=== PATIENT | male | born 1995 | race African-American/Black ===

== ENCOUNTER 2024-02-24 14:12 | Emergency (ER) | payer OTHER, SELFPAY ==
--- NOTE | ~2024-02-24 | XR_ITS ---
EXAMINATION: XR KNEE, LEFT CLINICAL INFORMATION: Pain and swelling COMPARISON: None available. TECHNIQUE: Four views of the left knee. FINDINGS: There appears to be edema/swelling of subcutaneous tissue in the prepatellar and infrapatellar region. Otherwise, soft tissues are unremarkable. Bones and joints are normal. No arthritic deformity, fracture or subluxation. No knee joint effusion. XR/XR knee LT 4V IMPRESSION: * There appears to be soft tissue swelling in the prepatellar/infrapatellar region. * Otherwise, unremarkable left knee.
[2024-02-24 14:43] VITALS: BP 139/97; PULSE 65; RESP 16; TEMP 36.3; O2SAT 97; BMI 29.8
--- NOTE | 2024-02-24 14:43 | ED.GENADULT ---
HPI - General Adult General Chief complaint: General Medical Stated complaint: Multiple complaints - back pain, ankle/knee pain Time Seen by Provider: 02/24/24 17:08 Source: patient Mode of arrival: ambulatory Limitations: no limitations History of Present Illness ED Provider: RUTH RAMEY PA-C HPI narrative: 28-year-old male with pmhx significant for polysubstance use on methadone presents to the ED today for evaluation of multiple concerns. He tells me that he is noticed swelling to his left knee along with bilateral ankles x3 days. Denies injury or trauma to these areas. Denies history of cardiac disease. States this has never happened before. Additionally reports scattered bumps to different areas of his body; one to right lower extremity, one to his lower right abdomen, and one to his upper left back. Denies pain. Denies known tick or insect bites. Denies new soaps/detergents/lotions. Denies new medications. Denies recent antibiotic use. Patient admits that he was recently homeless however was able to enter a senior care earlier today. Admits to IVDU with heroin and cocaine. Last used 3 days ago. Denies etoh consumption. Denies SI/HI. Denies fever, chills, rashes, headache, dizziness, vision changes, neck or back pain, N/V. Related Data Previous Rx's ?Medication ?Instructions ?Recorded doxycycline monohydrate 100 mg 100 mg PO BID 7 days #14 tabs 02/24/24 tablet prednisone 20 mg tablet 40 mg (2 x 20 mg) PO DAILY 5 days 02/24/24 #10 tabs Allergies Allergy/AdvReac Type Severity Reaction Status Date / Time No Known Allergies Allergy Verified 02/24/24 14:49 Review of Systems Review of Systems: Constitutional: No fever, chills, fatigue, night sweats, weight changes ENT/Mouth: No ear pain, hearing loss, nasal congestion, sinus pain, rhinorrhea, sore throat Eyes: No eye pain, swelling, redness, vision changes, discharge Cardio: No chest pain, palpitations, HARP, orthopnea, peripheral edema Pulm: No SOB, cough, sputum, wheezing, dyspnea, hemoptysis GI: No nausea, vomiting, hematemesis, abdominal pain, diarrhea, constipation, hematochezia, melena : No irregular bleeding, dysuria, frequency, urgency, hesitancy, hematuria, flank pain, urinary flow changes, urinary incontinence or retention MSK: No back pain, neck pain, joint pain, myalgias, +knee and ankle swelling Skin: No lesions, rashes, +skin lesions Neuro: No weakness, numbness, paresthesias, LOC, dizziness, headache Psych: No anxiety/panic, depression, SI/HI, AH/VH All other systems reviewed and are negative. [facility] Past Medical History Attestation statement: The following information was validated with the patient. Source: old records reviewed and nursing notes reviewed Social History Social History Advance Directives: No Advance Directives Information Provided: Yes Physical Exam ED Vital Signs: Vital Signs - 24 hr 02/24/24 14:43 02/24/24 18:52 Temperature 97.3 F 98.0 F Pulse Rate 65 68 Respiratory Rate 16 18 Blood Pressure 139/97 H 141/83 H Pulse Oximetry 97 98 Oxygen Delivery Method Room Air Room Air BMI result Body Mass Index 29.8 Patient hypertensive, vitals otherwise WNL Const General: cooperative, comfortable and no acute distress Orientation/consciousness: patient oriented x3 Limitations: no limitations HENMT Head: Yes normal to inspection, Yes No palpable skull fracture present, Yes normocephalic and Yes atraumatic Eyes General: appearance normal, both eyes and all related structures Pupils: Equal, round and reactive pupils present Neck Neck: Yes normal visual inspection, Yes full ROM and Yes no lymphadenopathy Resp Effort & Inspection: normal respiratory effort and able to speak in complete sentences Auscultation: clear to auscultation bilaterally Cardio Rate: regular rate Rhythm: regular rhythm GI Inspection: Yes normal to inspection Palpation (GI): Soft to palpation and nontender Neuro General: patient oriented x3 Cranial nerves: Yes Equal, round and reactive pupils present Extrem Other: + left knee with noted swelling. No overlying skin changes or deformity. Slightly tender to palpation of anterior left knee without palpable deformity, warmth, crepitus, fluctuance. Full ROM intact to both knees and ankles. Noted pedal edema. No peripheral edema. No calf tenderness bilaterally. Ambulating with steady gait. 2+ PT/DP/popliteal pulses bilaterally. Sensation intact to light touch. Course Course Course Narrative: This is a Rapid Medical Exam performed in triage by Alyssa Lombardi PA-C. Full HPI, ROS and PE to be performed by primary ED provider. 28 year-old M w/ no sig PMHx presenting to the ED c/o L knee fluid build up, bilateral ankle swelling & scattered bruising to back with pruritis. Also feels like I have alopecia. Has been sleeping on uneven surfaces. States has been homeless, just got housing today. PE: L knee with swelling and ttp. + indurated nodule to right inner thigh. Ecchymosis/lesions to back Plan: Labs, tick-borne illness Reevaluation(s) Reevaluation #1: 1830 -- CBC without leukocytosis or left shift. Slightly anemic with H&H 10.9/32.5 without priors to compare to. Normal platelets. ESR slightly elevated at 28. Chemistry without acute electrolyte abnormality requiring intervention. CRP slightly elevated to 2.95. BNP WNL. Normal liver and renal function. X-ray left knee shows soft tissue swelling in the prepatellar/infrapatellar region. Eagle wrap provided. > Lyme and tick-borne pathology pending. Discussed with patient and will treat with 1 week of doxycycline for suspected tick-borne pathology. He will be called with any positive results. > patient given referrals to PCP and to dermatology. Patient has remained stable throughout ED visit today. Discussed worrisome signs and symptoms and when to return to the ED. All questions answered at this time. Patient is agreeable with disposition and stable for discharge. Medical Decision Making Medical Decision Making MDM Narrative: 28-year-old male with pmhx significant for polysubstance use on methadone presents to the ED today for evaluation of multiple concerns. Patient hypertensive, vitals otherwise wnl. Patient is nontoxic-appearing and in no acute distress. On exam, left knee with noted swelling. No overlying skin changes or deformity. Slightly tender to palpation of anterior left knee without palpable deformity, warmth, crepitus, fluctuance. Full ROM intact to both knees and ankles. Noted pedal edema. No peripheral edema. No calf tenderness bilaterally. Ambulating with steady gait. 2+ PT/DP/popliteal pulses bilaterally. Sensation intact to light touch. Differential diagnosis includes contusion, msk sprain/ strain, fracture, Lyme disease, tick-borne pathology, dermatitis. Unlikely septic joint, gout, pseudogout. Plan for labs, lyme testing, tick bourne testing, xray, re-evaluation. Differential Diagnosis Differential Diagnoses: The differential diagnosis associated with the presentation includes as above. Admission/Observation Not indicated. Lab Data MDM Lab Attestation statement: I reviewed the patient's lab results. as above. 02/24/24 16:52 02/24/24 16:52 Labs: Lab Results 02/24/24 Range/Units 16:52 WBC 6.9 (4.8-10.8) X10*3/uL RBC 3.72 L (4.60-5.80) X10*6/uL Hgb 10.9 L (14.0-18.0) g/dl Hct 32.5 L (42.0-52.0) % MCV 87.4 (80.0-98.0) fL MCH 29.3 (27.0-33.0) pg MCHC 33.5 (31.0-36.0) g/dl RDW 12.5 (11.0-16.0) % Plt Count 282 (160-400) X10*3/uL MPV 8.8 L (9.4-12.4) fL Immature Gran % (Auto) 0.4 (0.0-0.4) % Neut % (Auto) 45.1 (45-73) % Lymph % (Auto) 41.5 H (20-40) % Cassia % (Auto) 8.7 (2-11) % Eos % (Auto) 4.0 (0-4) % Baso % (Auto) 0.3 (0-2) % Lymph # (Auto) 2.9 (1.2-4.9) X10*3/uL Cassia # (Auto) 0.6 (0.1-1.2) X10*3/uL Eos # (Auto) 0.3 (0.0-0.4) X10*3/uL Baso # (Auto) 0.0 (0.0-0.2) X10*3/uL Abs Immat Gran (auto) 0.03 (0.00-0.03) X10*3/uL Absolute Neuts (auto) 3.1 (2.0-8.3) x10*3/uL Absolute Nucleated RBC 0.000 (0.0-0.012) X10*3/uL Nucleated RBC % (auto) 0.0 (0.0-0.2) /100WBC ESR 28 H (0-15) MM/HR PT 11.8 (11.1-13.3) SEC INR 1.0 (0.9-1.1) Sodium 141 (135-145) mmol/L Potassium 4.7 (3.3-5.1) mmol/L Chloride 101 (96-108) mmol/L Carbon Dioxide 33 H (22-29) mmol/L Anion Gap 12 (12-20) BUN 9 (9-16) mg/dL Creatinine 0.73 (0.5-1.4) mg/dL Estim Creat Clear Calc 155.1 Estimated GFR > 60 Random Glucose 81 (60-115) mg/dL Uric Acid 4.2 (3.4-7.0) mg/dL Calcium 10.3 H (8.4-10.2) mg/dL Total Bilirubin 0.1 (0.0-1.0) mg/dL Direct Bilirubin < 0.2 (0.0-0.5) mg/dL AST 29 (5-37) U/L ALT 20 (0-40) U/L Alkaline Phosphatase 52 (39-117) U/L C-Reactive Protein 2.95 H (< or = 0.50) mg/dL B-Natriuretic Peptide 85 (<100) pg/mL Total Protein 7.6 (6.5-8.0) g/dL Albumin 3.9 (3.5-5.0) g/dL Independent Interpretation I performed an independent interpretation of an: Plain X-Ray Interpretation: XR left knee with effusion, agree with radiologist's interpreation. Radiology Impression Discussion of test interpretation with radiology: I have reviewed the radiologist's reading. Radiologist Impression: EXAMINATION: XR KNEE, LEFT CLINICAL INFORMATION: Pain and swelling COMPARISON: None available. TECHNIQUE: Four views of the left knee. FINDINGS: There appears to be edema/swelling of subcutaneous tissue in the prepatellar and infrapatellar region. Otherwise, soft tissues are unremarkable. Bones and joints are normal. No arthritic deformity, fracture or subluxation. No knee joint effusion. XR/XR knee LT 4V IMPRESSION: * There appears to be soft tissue swelling in the prepatellar/infrapatellar region. * Otherwise, unremarkable left knee. Social Determinants Patient?s care significantly limited by Social Determinants of Health including: Other Social Determinant of Health Critical Care Time Critical Care Time Critical Care Time: No Discharge Plan Discharge Clinical Impression: Sprain of left knee Patient Disposition: Home, Self-Care Instructions: Lyme Disease (ED), Knee Sprain (ED), Tick Bite (ED) Additional Instructions: Your lab workup today is reassuring. Your blood was sent to the lab to check for tick borne pathology including lyme disease. You will be treated for suspected lyme disease. A 1 week course of doxycycline has been sent to your pharmacy for treatment. You will be called within the next few days with any positive results from this testing. Prednisone as a steroid that has been sent to your pharmacy. Take this for the next 5 days to help with swelling/inflammation. You have been provided with a referral to a primary care physician. You may call them to establish care. They will not call you. You have also been provided with a referral to a pacs administrator. Call them to establish care. They will not call you. Return with new or worsening symptoms In the case of an emergency call 911. Prescriptions: New doxycycline monohydrate 100 mg tablet 100 mg PO BID 7 Days Qty: 14 0RF prednisone 20 mg tablet 40 mg PO DAILY 5 Days Qty: 10 0RF Referrals: [facility] [Provider Group] [facility] [place] [facility]Provider Group] [facility] [place] [facility]] Karol Marie PA [Physician Metal Furniture Polisher] - Stand Alone Forms: Work/School Release Interventions: ED Discharge Assessment Last Done: 02/24/24 18:52 Discharge Date/Time: 02/24/24 18:53 Print Language: Malian
[2024-02-24 17:09] LABS: MANUAL DIFF FLAG NO
[2024-02-24 17:10] LABS: Basophils Percent Auto 0.3 % (0-2); Eosinophils Absolute Auto 0.3 X10*3/uL (0.0-0.4); Hematocrit 32.5 % (42.0-52.0); Hemoglobin 10.9 g/dl (14.0-18.0); Imm Gran Abs Auto 0.03 X10*3/uL (0.00-0.03); Imm Gran Pct Auto 0.4 % (0.0-0.4); Lymphocytes Absolute Auto 2.9 X10*3/uL (1.2-4.9); Lymphocytes Percent Auto 41.5 % (20-40); Mean Corpuscular HGB Conc 33.5 g/dl (31.0-36.0); Mean Corpuscular Hemoglobin 29.3 pg (27.0-33.0); Mean Corpuscular Volume 87.4 fL (80.0-98.0); Mean Platelet Volume 8.8 fL (9.4-12.4); Monocytes Absolute Auto 0.6 X10*3/uL (0.1-1.2); Monocytes Percent Auto 8.7 % (2-11); Neutrophils Absolute Auto 3.1 x10*3/uL (2.0-8.3); Neutrophils Percent Auto 45.1 % (45-73); Platelet Count 282 X10*3/uL (160-400); Red Blood Count 3.72 X10*6/uL (4.60-5.80); Red Cell Distribution Width 12.5 % (11.0-16.0); White Blood Count 6.9 X10*3/uL (4.8-10.8)
[2024-02-24 17:16] LABS: Prothrombin Time 11.8 SEC (11.1-13.3)
[2024-02-24 17:27] LABS: Alanine Aminotransferase 20 U/L (0-40); Albumin Level 3.9 g/dL (3.5-5.0); Alkaline Phosphatase 52 U/L (39-117); Anion Gap 12 (12-20); Aspartate Amino Transferase 29 U/L (5-37); Bilirubin Direct < 0.2 mg/dL (0.0-0.5); Bilirubin Total 0.1 mg/dL (0.0-1.0); Blood Urea Nitrogen 9 mg/dL (9-16); C Reactive Protein 2.95 mg/dL (< or = 0.50); Calcium 10.3 mg/dL (8.4-10.2); Carbon Dioxide 33 mmol/L (22-29); Chloride 101 mmol/L (96-108); Creatinine Clr Calc Pharmacy 155.1; Estimated Glomerular Filt Rate > 60; Glucose Random 81 mg/dL (60-115); Potassium 4.7 mmol/L (3.3-5.1); Sodium 141 mmol/L (135-145); Total Protein 7.6 g/dL (6.5-8.0)
[2024-02-24 17:49] LABS: B Type Natriuretic Peptide 85 pg/mL (<100)
[2024-02-24 17:50] LABS: Erythrocyte Sedimentation Rate 28 MM/HR (0-15)
[2024-02-24 18:37] LABS: Uric Acid 4.2 mg/dL (3.4-7.0)
[2024-02-24 18:52] VITALS: BP 141/83; PULSE 68; RESP 18; TEMP 36.7; O2SAT 98
--- NOTE | 2024-02-24 18:52 | PC.NURSE ---
lt knee yang wrapped
[2024-02-26 03:13] LABS: A. Phagocytphilium DNA,RT-PCR NOT DETECTED (NOT DETECTED); Babesia Microti DNA, RT-PCR NOT DETECTED (NOT DETECTED); Borrelia Miyamotoi,DNA RT-PCR NOT DETECTED (NOT DETECTED); E.Chaffeensis DNA RT-PCR NOT DETECTED (NOT DETECTED); Lyme(Borrelia ssp)DNA RT-PCR NOT DETECTED (NOT DETECTED)
[2024-02-28 18:37] LABS: Lyme Abs Screen <0.90 index
== END 2024-02-24 18:53 | disposition home or self-care (01) ==
PROVIDERS: Physician Assistant; Physician Assistant Medical; Emergency Provider Emergency Medicine
DX: S83.92XA Sprain of unspecified site of left knee, initial encounter (principal); X58.XXXA Exposure to other specified factors, initial encounter; R60.0 Localized edema; F11.20 Opioid dependence, uncomplicated; Y93.9 Activity, unspecified; Y92.9 Unspecified place or not applicable; Y99.9 Unspecified external cause status
CPT/HCPCS: 36415; 73564; 80048; 80076; 83880; 84550; 85025; 85610; 85652; 86140; 86617; 86618; 87468; 87469; 87478; 87484; 87798; 99282; 99283

== ENCOUNTER 2025-07-24 17:21 | Inpatient (IN) | payer OTHER, SELFPAY ==
[2025-07-24 17:50] VITALS: BP 136/74; PULSE 80; RESP 18; TEMP 37; O2SAT 97
[2025-07-24 17:59] VITALS: BMI 32.4
--- NOTE | 2025-07-24 18:46 | HE.PHANOTE ---
Re Methadone Pt receives 100mg from [facility], last dose on 07/18/25, but received 40mg at [facility] ED on 07/24/25.
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
[2025-07-24] MEDS: buPROPion HCl XL 150 MG TAB.ER.24H PO (21:29)
[2025-07-24 21:30] VITALS: BP 114/82
[2025-07-24] MEDS: Clotrimazole 1 % Cream 15 GM TUBE 1 APPL TOPICAL (21:35)
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
[2025-07-24 22:57] VITALS: PULSE 102; RESP 18; TEMP 2.7; TEMP 36.9; O2SAT 96
[2025-07-25 07:29] VITALS: BP 142/89; PULSE 71; RESP 20; TEMP 36.4; O2SAT 98
[2025-07-25] MEDS: methADONE HCl 20 MG/2 ML ORAL.CONC 40 MG PO (08:20)
[2025-07-25] MEDS: buPROPion HCl XL 150 MG TAB.ER.24H PO (08:43)
[2025-07-25] MEDS: Nicotine 21 MG PATCH.TD24 TRANSDERMA (08:46)
[2025-07-25] MEDS: Nicotine Polacrilex Lozenge 4 MG LOZENGE BUCCAL ×4 (08:46→19:07)
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
--- NOTE | 2025-07-25 09:22 | HO.PSYCHPN ---
Subjective Subjective Date of Service: 07/25/25 Reason For Visit: unspecified depressive disorder Subjective Notes: Conditional Voluntary Interim History: Chart reviewed, case discussed in team Pt met w/ Earline Barbosa from addiction medicine earlier today. Methadone was titrated from 40 mg to 65 mg this am. Pt reported feeling more comfortable when t/w met w/ him after he received the methadone. Pt received Wellbutrin XL 150 mg this am. He reports that it had been rx'd prior to admission but he hadn't tried it yet. Denies any SE from first dose Pt reports feeling a little better, safe and more relaxed since being on the unit. Slept okay. Endorses decreased SI and denies current plan to harm himself. He denies AH/VH. Endorses depressed and anxious mood, negative self thoughts. He reports that life has been very stressful living on the streets. He reports that he currently has no support b/c of the drug use (crack, cocaine, heroin and meth). His mom would be a support if he were sober. He is worried about being discharged too quickly from the hospital, states that he needs long-term treatment. He has previously attended [facility], [facility] and 4-5 other tx programs. He reports that he was kicked out of a TSS program for smoking a cigarette on the first day. Medication Compliance: Yes Side effects from medications: No Mental Status Exam Mental Status Exam Narrative: Appearance: Wearing hospital nannette, headphones. Disheveled Attitude:Cooperative Speech: Fluent and wnl in regard to volume, tone, prosody Motor activity: Calm and without any tics, tremors or dyskinesias Mood: as noted above Affect: appropriate, reactive Thought process: goal directed and without evidence of formal thought disorder Thought content: endorses SI without plan to harm himself. Denies violent ideation Perception: Denies AH/VH and does not appear to respond to internal stimuli Alert/oriented in all spheres Cognition grossly intact Insight: fair Judgment: fair Diagnostics Vital Signs (24Hr): Vital Signs - 24 hr 07/24/25 17:50 07/24/25 21:30 07/24/25 22:57 Temperature 98.6 F 36.9 F L Pulse Rate 80 102 H Respiratory Rate 18 18 Blood Pressure 136/74 114/82 Pulse Oximetry 97 96 Oxygen Delivery Method Room Air Room Air 07/25/25 07:29 Temperature 97.6 F Pulse Rate 71 Respiratory Rate 20 Blood Pressure 142/89 H Pulse Oximetry 98 Oxygen Delivery Method Room Air BMI result Body Mass Index 32.4 Medications Medications Current Medications Acetaminophen (Acetaminophen 325 Mg Tablet) 650 mg PO Q6H PRN PRN Reason: Headache/Pain, Scale 1-10 Al Hydroxide/Mg Hydroxide (Magnesium Hydrox/Alum Hydrox 30 Ml Oral.Susp) 30 ml PO Q6H PRN PRN Reason: Heartburn/Nausea Albuterol Sulfate (Albuterol Sulfate 90 Mcg 8 Gm Inhaler) 2 puff INHALE RQ4H PRN PRN Reason: SOB/Wheezing Amoxicillin/Clavulanate Potassium (Amoxicillin/Potassium Clav 875 Mg Tablet) 875 mg PO BID [facility] Stop: 07/31/25 19:00 Last Admin: 07/25/25 08:43 Dose: 875 mg Baclofen (Baclofen 10 Mg Tablet) 10 mg PO TID PRN PRN Reason: muscle pain/ Opiate W/D Last Admin: 07/24/25 21:29 Dose: 10 mg Bupropion HCl (Bupropion Hcl Xl 150 Mg Tab.Er.24h) 150 mg PO DAILY [facility] Last Admin: 07/25/25 08:43 Dose: 150 mg Clonidine HCl (Clonidine Hcl 0.1 Mg Tablet) 0.1 mg PO TID PRN; Protocol PRN Reason: Opiate W/D Last Admin: 07/24/25 21:30 Dose: 0.1 mg Clotrimazole (Clotrimazole 1 % Cream 15 Gm Tube) 1 appl TOPICAL BID [facility]; Protocol Last Admin: 07/24/25 21:35 Dose: 1 appl Hydroxyzine HCl (Hydroxyzine Hcl 50 Mg Tablet) 50 mg PO Q6H PRN PRN Reason: mild anxiety Ketoconazole (Ketoconazole 2 % Shampoo 120 Ml Btl) 1 appl TOPICAL Q3D [facility]; Protocol Lidocaine HCl (Lidocaine Hcl Viscous 2 % 15 Ml Solution) 5 ml PO DAILY PRN PRN Reason: mild pain Magnesium Hydroxide (Milk Of Magnesia 30 Ml Oral.Susp) 30 ml PO DAILY PRN PRN Reason: Constipation Methadone HCl (Methadone Hcl 20 Mg/2 Ml Oral.Conc) 40 mg PO DAILY [facility] Last Admin: 07/25/25 08:20 Dose: 40 mg Nicotine (Nicotine 21 Mg Patch.Td24) 21 mg TRANSDERMA DAILY PRN PRN Reason: nicotine craving Last Admin: 07/25/25 08:46 Dose: 21 mg Nicotine Polacrilex (Nicotine Polacrilex Lozenge 4 Mg Lozenge) 4 mg BUCCAL Q2H PRN PRN Reason: Nicotine Cravings Last Admin: 07/25/25 08:46 Dose: 4 mg Olanzapine (Olanzapine 5 Mg Tablet) 5 mg PO BID PRN PRN Reason: agitation Trazodone HCl (Trazodone Hcl 50 Mg Tablet) 50 mg PO BEDTIME MRX1 PRN PRN Reason: Insomnia Allergies Allergies Allergy/AdvReac Type Severity Reaction Status Date / Time No Known Allergies Allergy Verified 02/24/24 14:49 Assessment & Plan Assessment & Plan (1) Depression: Status: Acute Code(s): F32.A - Depression, unspecified (2) PTSD (post-traumatic stress disorder): Status: Acute Code(s): F43.10 - Post-traumatic stress disorder, unspecified (3) Polysubstance use disorder: Status: Acute Code(s): F19.90 - Other psychoactive substance use, unspecified, uncomplicated (4) Tooth infection: Status: Acute Code(s): K04.7 - Periapical abscess without sinus Plan HPI: patient is a 29 y.o single Latvian speaking male with hx of asthma, PTSD, depression, anxiety, and polysubstance use disorders who self presented to ED reporting SI with plan to OD. SI related to his continued drug use, homelessness, and overall displeasure with his life circumstances. Report that he has been using all day everyday, they are not even working. I cannot even kill myself . Formulation/clinical reasoning: Limited community support after [facility] from [facility]. No OP providers/therapist. Only started MTD with current dose 40mg, increased in hopeless, helpless, not able to get help in community. hx of PTSD, foster care during childhood, MDD. Given above information, patient would benefit in restrictive environment, medication management. Patient is a appropriate for snf substance tx program for after care. Hospital course: 07/24/25: On [facility] protocol for opiate W/D symptoms Baclofen 10mg TID PRN and clonidine 0.1 TID PRN as comfort meds for W/D symptoms Restart on Wellbutrin XL 150mg daily for depression On ABT for tooth infection x7 days. MTD 40mg daily. Consult sent Addiction team regarding MTD/ SA use. Plan Patient on 15 minute checks for safety. Admitted to [facility]. CV. Work with treatment team to do collateral for CSS/CCS if possible for aftercare. Refer to patient to grounds restoration specialist: yes for MTD management Contact the hospitalist regarding hospitalist consultation on admission: pending. 07/25: Pt started Wellbutrin XL 150 mg this am, denies SE so far. Met w/ addiction medicine [facility] who titrated his methadone to 65 mg. Met w/ hospitalist, who started him on clotrimazole for tinea cruris. Input appreciated. Continue current tx plan for now Patient educated on: diagnosis and medication risk/benefits Informed Consent: understands Reason for continued inpatient stay Substantial Risk for: harm to self and med/psych decompensation Time Spent With Patient Time: Total time managing care of this patient today __30__ minutes.
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
[2025-07-25] MEDS: methADONE HCl 20 MG/2 ML ORAL.CONC 25 MG PO (10:17)
[2025-07-25] MEDS: Clotrimazole 1 % Cream 15 GM TUBE 1 APPL TOPICAL ×2 (12:04→20:49)
[2025-07-25 16:20] VITALS: PULSE 80
[2025-07-25] MEDS: Ketoconazole 2 % Shampoo 120 ML BTL 1 APPL TOPICAL (17:02)
[2025-07-25 20:00] VITALS: BP 141/90; PULSE 86; RESP 16; TEMP 36.6; O2SAT 96
[2025-07-26] MEDS: methADONE HCl 20 MG/2 ML ORAL.CONC 75 MG PO (08:20)
[2025-07-26 08:35] VITALS: BP 136/81; PULSE 73; RESP 16; TEMP 36.3; O2SAT 98
[2025-07-26 08:37] VITALS: PULSE 73
[2025-07-26] MEDS: buPROPion HCl XL 150 MG TAB.ER.24H PO (08:40)
[2025-07-26] MEDS: Clotrimazole 1 % Cream 15 GM TUBE 1 APPL TOPICAL ×2 (08:41→21:05)
--- NOTE | 2025-07-26 09:15 | HO.PSYCHPN ---
Subjective Subjective Date of Service: 07/26/25 Reason For Visit: unspecified depressive disorder Subjective Notes: Conditional Voluntary Interim History: singing dancing in [place], appears to respond to internal stimuli slept x 8 hrs referred to [facility] [place]- they don't take his insurance referred to [facility]- waiting to hear back Pt reports that he's feeling blah . Denies having SI at this moment . Reports good sleep/appetite. When asked about AH, he states I wish because at least I'd have someone to talk to . When asked if he's been talking to anyone on the unit he replied nah . Pt endorses neuropathic leg pain. States he took gabapentin in the past. He didn't f/u with his provider and therefore ran out of the med. Received 75 mg methadone this am. Denies w/d sx Denies med SE. Mental Status Exam Mental Status Exam Narrative: Appearance: Casually dressed. Good eye contact. Odd mannerisms at times Attitude:Cooperative Speech: Fluent and wnl in regard to volume, tone, prosody Motor activity: Calm and without any tics, tremors or dyskinesias. Steady gait Mood: as noted above Affect: appropriate, reactive Thought process: Vague in describing current psychiatric sx but generally goal directed Thought content: Denies current SI. Does not endorse violent ideation Perception: Denies AH/VH and does not appear to respond to internal stimuli Insight: fair Judgment: fair Diagnostics Vital Signs (24Hr): Vital Signs - 24 hr 07/25/25 20:00 07/26/25 08:35 Temperature 97.8 F 97.3 F Pulse Rate 86 73 Respiratory Rate 16 16 Blood Pressure 141/90 H 136/81 Pulse Oximetry 96 98 Oxygen Delivery Method Room Air Room Air BMI result Body Mass Index 32.4 Medications Medications Current Medications Acetaminophen (Acetaminophen 325 Mg Tablet) 650 mg PO Q6H PRN PRN Reason: Headache/Pain, Scale 1-10 Al Hydroxide/Mg Hydroxide (Magnesium Hydrox/Alum Hydrox 30 Ml Oral.Susp) 30 ml PO Q6H PRN PRN Reason: Heartburn/Nausea Albuterol Sulfate (Albuterol Sulfate 90 Mcg 8 Gm Inhaler) 2 puff INHALE RQ4H PRN PRN Reason: SOB/Wheezing Amoxicillin/Clavulanate Potassium (Amoxicillin/Potassium Clav 875 Mg Tablet) 875 mg PO BID [facility] Stop: 07/31/25 19:00 Last Admin: 07/26/25 08:40 Dose: 875 mg Baclofen (Baclofen 10 Mg Tablet) 10 mg PO TID PRN PRN Reason: muscle pain/ Opiate W/D Last Admin: 07/24/25 21:29 Dose: 10 mg Bupropion HCl (Bupropion Hcl Xl 150 Mg Tab.Er.24h) 150 mg PO DAILY [facility] Last Admin: 07/26/25 08:40 Dose: 150 mg Clonidine HCl (Clonidine Hcl 0.1 Mg Tablet) 0.1 mg PO TID PRN; Protocol PRN Reason: Opiate W/D Last Admin: 07/24/25 21:30 Dose: 0.1 mg Clotrimazole (Clotrimazole 1 % Cream 15 Gm Tube) 1 appl TOPICAL BID [facility]; Protocol Stop: 08/22/25 20:59 Last Admin: 07/26/25 08:41 Dose: 1 appl Hydroxyzine HCl (Hydroxyzine Hcl 50 Mg Tablet) 50 mg PO Q6H PRN PRN Reason: mild anxiety Last Admin: 07/25/25 20:14 Dose: 50 mg Ketoconazole (Ketoconazole 2 % Shampoo 120 Ml Btl) 1 appl TOPICAL Q3D [facility]; Protocol Last Admin: 07/25/25 17:02 Dose: 1 appl Lidocaine HCl (Lidocaine Hcl Viscous 2 % 15 Ml Solution) 5 ml PO DAILY PRN PRN Reason: mild pain Magnesium Hydroxide (Milk Of Magnesia 30 Ml Oral.Susp) 30 ml PO DAILY PRN PRN Reason: Constipation Nicotine (Nicotine 21 Mg Patch.Td24) 21 mg TRANSDERMA DAILY PRN PRN Reason: nicotine craving Last Admin: 07/25/25 08:46 Dose: 21 mg Nicotine Polacrilex (Nicotine Polacrilex Lozenge 4 Mg Lozenge) 4 mg BUCCAL Q1H PRN PRN Reason: Nicotine Cravings Last Admin: 07/25/25 19:07 Dose: 4 mg Olanzapine (Olanzapine 5 Mg Tablet) 5 mg PO BID PRN PRN Reason: agitation Trazodone HCl (Trazodone Hcl 50 Mg Tablet) 50 mg PO BEDTIME MRX1 PRN PRN Reason: Insomnia Last Admin: 07/25/25 20:15 Dose: 50 mg Allergies Allergies Allergy/AdvReac Type Severity Reaction Status Date / Time No Known Allergies Allergy Verified 02/24/24 14:49 Assessment & Plan Assessment & Plan (1) Depression: Status: Acute Code(s): F32.A - Depression, unspecified (2) PTSD (post-traumatic stress disorder): Status: Acute Code(s): F43.10 - Post-traumatic stress disorder, unspecified (3) Polysubstance use disorder: Status: Acute Code(s): F19.90 - Other psychoactive substance use, unspecified, uncomplicated (4) Tooth infection: Status: Acute Code(s): K04.7 - Periapical abscess without sinus Plan HPI: patient is a 29 y.o single Tamaz[place] speaking male with hx of asthma, PTSD, depression, anxiety, and polysubstance use disorders who self presented to ED reporting SI with plan to OD. SI related to his continued drug use, homelessness, and overall displeasure with his life circumstances. Report that he has been using all day everyday, they are not even working. I cannot even kill myself . Formulation/clinical reasoning: Limited community support after released from alf. No OP providers/therapist. Only started MTD with current dose 40mg, increased in hopeless, helpless, not able to get help in community. hx of PTSD, foster care during childhood, MDD. Given above information, patient would benefit in restrictive environment, medication management. Patient is a appropriate for long term care pharmacist substance tx program for after care. Hospital course: 07/24/25: On COWs protocol for opiate W/D symptoms Baclofen 10mg TID PRN and clonidine 0.1 TID PRN as comfort meds for W/D symptoms Restart on Wellbutrin XL 150mg daily for depression On ABT for tooth infection x7 days. MTD 40mg daily. Consult sent Addiction team regarding MTD/ SA use. Plan Patient on 15 minute checks for safety. Admitted to M3. CV. Work with treatment team to do collateral for CSS/CCS if possible for aftercare. Refer to patient to solar energy specialist: yes for MTD management Contact the hospitalist regarding hospitalist consultation on admission: pending. 07/25: Pt started Wellbutrin XL 150 mg this am, denies SE so far. Met w/ addiction medicine TABLEAU REPORT DEVELOPER who titrated his methadone to 65 mg. Met w/ hospitalist, who started him on clotrimazole for tinea cruris. Input appreciated. Continue current tx plan for now 07/26: Methadone titrated to 75 mg by addiction medicine TABLEAU REPORT DEVELOPER. He is alert, denies current w/d sx. Tolerating current med regimen. Will start gabapentin 100 mg tid for neuropathic pain. Reviewed HOTEL CUSTODIAN. Patient educated on: medication risk/benefits Informed Consent: understands Reason for continued inpatient stay Substantial Risk for: med/psych decompensation Time Spent With Patient Time: Total time managing care of this patient today ____ minutes.
[2025-07-26 12:48] VITALS: PULSE 72
[2025-07-26] MEDS: Nicotine Polacrilex Lozenge 4 MG LOZENGE BUCCAL ×2 (13:20→17:23)
--- NOTE | 2025-07-26 14:01 | MHC.RECOVRN ---
TW met with pt to follow-up on opioid withdrawal symptoms. Pt is currently on 75mg of methadone daily and reports ongoing joint pain and muscle weakness attributed to withdrawal. Information relayed to Addiction Provider for review. ACS team to continue to follow and is available for ongoing support, resources, and education.
[2025-07-26 16:32] VITALS: PULSE 84
[2025-07-26 16:48] VITALS: BP 131/87; PULSE 81; RESP 16; TEMP 36.4; O2SAT 98
[2025-07-26 20:00] VITALS: BP 122/83; PULSE 81; RESP 16; TEMP 36.3; O2SAT 99
[2025-07-27] VITALS: PULSE 80
[2025-07-27 07:38] VITALS: BP 123/76; PULSE 75; RESP 20; TEMP 36.7; O2SAT 99
[2025-07-27 08:00] VITALS: PULSE 75
[2025-07-27] MEDS: buPROPion HCl XL 150 MG TAB.ER.24H PO (08:12)
[2025-07-27] MEDS: methADONE HCl 20 MG/2 ML ORAL.CONC 85 MG PO (08:57)
--- NOTE | 2025-07-27 11:11 | P.PNPSI_ITS ---
Subjective Subjective Date of Service: 07/27/25 Reason For Visit: unspecified depressive disorder Subjective Notes: Conditional Voluntary Interim History: Chart reviewed and case discussed with team. Per nursing report slept 7 hours, cheerful in the milieu Met with patient along with PRINTING SUPERVISOR student Pt reluctantly agreed to meet with us. He had been eating snacks in the dining area. He reported my depression is up , denies SI He reports going to a total of three groups and states he didn't get anything out of the groups because I learned it already in college. Endorses anxiety, states that he's not getting hydroxyzine or clonidine frequently enough but only took one dose of the prn hydroxyzine and clonidine yesterday, none today according to the MAR. He asks to titrate the gabapentin for neuropathic pain. States his antidepressant isn't working (bupropion was just started earlier this week) Per SW pt has been referred to [place] and [facility] and they don't take his insurance. Waiting to hear back from [facility]. Methadone is being gradually titrated back up to previous dose of 100 mg qd by Addiction Medicine PRINTING SUPERVISOR. Medication Compliance: Yes Side effects from medications: No Attending Groups: Intermittent Review of Systems Acute medical concerns: No Mental Status Exam Mental Status Exam Narrative: Appearance: Casually dressed. disheveled. Good eye contact. Odd mannerisms at times Attitude: minimally engaged Speech: Fluent and wnl in regard to volume, tone, prosody Motor activity: Calm and without any tics, tremors or dyskinesias. Steady gait Mood: as noted above Affect: mildly irritable. does not appear significantly depressed or anxious Thought process: Vague in describing current psychiatric sx Thought content: Denies current SI. Does not endorse violent ideation Perception: Again states I wish when asked about AH. Does not appear to respond to internal stimuli Insight: fair Judgment: fair Diagnostics Vital Signs (24Hr): Vital Signs - 24 hr 07/26/25 12:48 07/26/25 16:48 07/26/25 20:00 Temperature 97.5 F 97.3 F Pulse Rate 72 81 81 Respiratory Rate 16 16 Blood Pressure 131/87 122/83 Pulse Oximetry 98 99 Oxygen Delivery Method Room Air Room Air 07/27/25 07:38 Temperature 98.1 F Pulse Rate 75 Respiratory Rate 20 Blood Pressure 123/76 Pulse Oximetry 99 Oxygen Delivery Method Room Air BMI result Body Mass Index 32.4 Medications Medications Current Medications Acetaminophen (Acetaminophen 325 Mg Tablet) 650 mg PO Q6H PRN PRN Reason: Headache/Pain, Scale 1-10 Al Hydroxide/Mg Hydroxide (Magnesium Hydrox/Alum Hydrox 30 Ml Oral.Susp) 30 ml PO Q6H PRN PRN Reason: Heartburn/Nausea Albuterol Sulfate (Albuterol Sulfate 90 Mcg 8 Gm Inhaler) 2 puff INHALE RQ4H PRN PRN Reason: SOB/Wheezing Amoxicillin/Clavulanate Potassium (Amoxicillin/Potassium Clav 875 Mg Tablet) 875 mg PO BID [facility] Stop: 07/31/25 19:00 Last Admin: 07/27/25 08:13 Dose: 875 mg Baclofen (Baclofen 10 Mg Tablet) 10 mg PO TID PRN PRN Reason: muscle pain/ Opiate W/D Last Admin: 07/26/25 16:51 Dose: 10 mg Bupropion HCl (Bupropion Hcl Xl 150 Mg Tab.Er.24h) 150 mg PO DAILY [facility] Last Admin: 07/27/25 08:12 Dose: 150 mg Clonidine HCl (Clonidine Hcl 0.1 Mg Tablet) 0.1 mg PO TID PRN; Protocol PRN Reason: Opiate W/D Last Admin: 07/26/25 16:51 Dose: 0.1 mg Clotrimazole (Clotrimazole 1 % Cream 15 Gm Tube) 1 appl TOPICAL BID [facility]; Protocol Stop: 08/22/25 20:59 Last Admin: 07/27/25 08:13 Dose: Not Given Gabapentin (Gabapentin 100 Mg Capsule) 100 mg PO TID [facility] Last Admin: 07/27/25 08:12 Dose: 100 mg Hydroxyzine HCl (Hydroxyzine Hcl 50 Mg Tablet) 50 mg PO Q6H PRN PRN Reason: mild anxiety Last Admin: 07/26/25 21:07 Dose: 50 mg Ketoconazole (Ketoconazole 2 % Shampoo 120 Ml Btl) 1 appl TOPICAL Q3D [facility]; Protocol Last Admin: 07/25/25 17:02 Dose: 1 appl Lidocaine HCl (Lidocaine Hcl Viscous 2 % 15 Ml Solution) 5 ml PO DAILY PRN PRN Reason: mild pain Magnesium Hydroxide (Milk Of Magnesia 30 Ml Oral.Susp) 30 ml PO DAILY PRN PRN Reason: Constipation Methadone HCl (Methadone Hcl 20 Mg/2 Ml Oral.Conc) 95 mg PO DAILY@0800 [facility] Stop: 07/28/25 08:01 Methadone HCl (Methadone Hcl 20 Mg/2 Ml Oral.Conc) 100 mg PO DAILY@0800 [facility] Nicotine (Nicotine 21 Mg Patch.Td24) 21 mg TRANSDERMA DAILY PRN PRN Reason: nicotine craving Last Admin: 07/25/25 08:46 Dose: 21 mg Nicotine Polacrilex (Nicotine Polacrilex Lozenge 4 Mg Lozenge) 4 mg BUCCAL Q1H PRN PRN Reason: Nicotine Cravings Last Admin: 07/26/25 17:23 Dose: 4 mg Olanzapine (Olanzapine 5 Mg Tablet) 5 mg PO BID PRN PRN Reason: agitation Trazodone HCl (Trazodone Hcl 50 Mg Tablet) 50 mg PO BEDTIME MRX1 PRN PRN Reason: Insomnia Last Admin: 07/26/25 21:07 Dose: 50 mg Allergies Allergies Allergy/AdvReac Type Severity Reaction Status Date / Time No Known Allergies Allergy Verified 02/24/24 14:49 Assessment & Plan Assessment & Plan (1) Depression: Status: Acute Code(s): F32.A - Depression, unspecified (2) PTSD (post-traumatic stress disorder): Status: Acute Code(s): F43.10 - Post-traumatic stress disorder, unspecified (3) Polysubstance use disorder: Status: Acute Code(s): F19.90 - Other psychoactive substance use, unspecified, uncomplicated (4) Tooth infection: Status: Acute Code(s): K04.7 - Periapical abscess without sinus Plan HPI: patient is a 29 y.o single Danish speaking male with hx of asthma, PTSD, depression, anxiety, and polysubstance use disorders who self presented to ED reporting SI with plan to OD. SI related to his continued drug use, homelessn ess, and overall displeasure with his life circumstances. Report that he has been using all day everyday, they are not even working. I cannot even kill myself . Formulation/clinical reasoning: Limited community support after released from snf. No OP providers/therapist. Only started MTD with current dose 40mg, increased in hopeless, helpless, not able to get help in community. hx of PTSD, foster care during childhood, MDD. Given above information, patient would benefit in restrictive environment, medication management. Patient is a appropriate for terminal [facility] substance tx program for after care. Hospital course: 07/24/25: On COWs protocol for opiate W/D symptoms Baclofen 10mg TID PRN and clonidine 0.1 TID PRN as comfort meds for W/D symptoms Restart on Wellbutrin XL 150mg daily for depression On ABT for tooth infection x7 days. MTD 40mg daily. Consult sent Addiction team regarding MTD/ SA use. Plan Patient on 15 minute checks for safety. Admitted to M3. CV. Work with treatment team to do collateral for CSS/CCS if possible for aftercare. Refer to patient to family services specialist: yes for MTD management Contact the hospitalist regarding hospitalist consultation on admission: pending. 07/25: Pt started Wellbutrin XL 150 mg this am, denies SE so far. Met w/ addiction medicine PRINTING SUPERVISOR who titrated his methadone to 65 mg. Met w/ hospitalist, who started him on clotrimazole for tinea cruris. Input appreciated. Continue current tx plan for now 07/26: Methadone titrated to 75 mg by addiction medicine PRINTING SUPERVISOR. He is alert, denies current w/d sx. Tolerating current med regimen. Will start gabapentin 100 mg tid for neuropathic pain. Reviewed DOCUMENT REVIEWER. 07/27: Pt endorses ongoing depression and anxiety, states he isn't getting his prn meds frequently enough but has only utilized them once yesterday and none today. Just started bupropion earlier this week. Methadone titrated to 85 mg by addiction medicine PRINTING SUPERVISOR, gradually titrating back to previous dose of 100 mg. Will titrate gabapentin to 200 mg TID for neuropathic pain. Patient educated on: medication risk/benefits Informed Consent: understands Reason for continued inpatient stay Substantial Risk for: med/psych decompensation Time Spent With Patient Time: Total time managing care of this patient today ____ minutes.
--- NOTE | 2025-07-27 11:22 | MHC.RECOVRN ---
Consult placed to Addiction Medicine for pt admitted w/ depression, SI, and polysubstance use requesting an increase in methadone. On approach pt is standing in the hallway, with eyes closed, listening to music. Pt opens one eye and states he's feeling ok when asked about methadone dosage and extent of any current withdrawal symptoms. Pt presents as guarded and withdrawn and verbalized he had nothing more to discuss with this designer/writer. Chart review indicates pt has titrated to 95mg of methadone and will receive 100mg tomorrow. Pt also has referrals sent to [facility] for placement upon discharge. He also is currently enrolled with [facility] for dosing in the community. Pt provided educational printouts, resources, and community support options including contact information for ACS team. ACs team is available as needed for ongoing support, resources, and education as needed.
--- NOTE | 2025-07-27 18:14 | PC.NURSE ---
RN attempted to assess COWS, pt declined with preference to wait until after shower and dinner.
[2025-07-27 18:26] VITALS: PULSE 94
[2025-07-27] MEDS: Nicotine Polacrilex Lozenge 4 MG LOZENGE BUCCAL (18:32)
[2025-07-27 20:00] VITALS: BP 127/78; PULSE 89; RESP 16; TEMP 36.9; O2SAT 95
[2025-07-27] MEDS: Clotrimazole 1 % Cream 15 GM TUBE 1 APPL TOPICAL (20:38)
[2025-07-28] VITALS: PULSE 86
[2025-07-28] MEDS: methADONE HCl 20 MG/2 ML ORAL.CONC 95 MG PO (08:13)
[2025-07-28] MEDS: buPROPion HCl XL 150 MG TAB.ER.24H PO (08:47)
--- NOTE | 2025-07-28 10:03 | HO.PSYCHPN ---
Subjective Subjective Date of Service: 07/28/25 Reason For Visit: unspecified depressive disorder Subjective Notes: Conditional Voluntary Interim History: Patient was seen and discussed in rounds today. Records and plans were reviewed. He was exhibiting some bizarre behaviors in the morning yesterday. Continues to endorse anxiety and depression. He has not been scoring on the opiate withdrawal protocol and will be discontinued. No SI. No changes were made other than the above Review of Systems Review of Systems Yes all other systems are reviewed and are negative Mental Status Exam Mental Status Exam Narrative: In today's visit he refused to get out of bed and I was not able to examine him fully. Diagnostics Vital Signs (24Hr): Vital Signs - 24 hr 07/27/25 20:00 Temperature 98.4 F Pulse Rate 89 Respiratory Rate 16 Blood Pressure 127/78 Pulse Oximetry 95 Oxygen Delivery Method Room Air BMI result Body Mass Index 32.4 Medications Medications Current Medications Acetaminophen (Acetaminophen 325 Mg Tablet) 650 mg PO Q6H PRN PRN Reason: Headache/Pain, Scale 1-10 Al Hydroxide/Mg Hydroxide (Magnesium Hydrox/Alum Hydrox 30 Ml Oral.Susp) 30 ml PO Q6H PRN PRN Reason: Heartburn/Nausea Albuterol Sulfate (Albuterol Sulfate 90 Mcg 8 Gm Inhaler) 2 puff INHALE RQ4H PRN PRN Reason: SOB/Wheezing Amoxicillin/Clavulanate Potassium (Amoxicillin/Potassium Clav 875 Mg Tablet) 875 mg PO BID [facility] Stop: 07/31/25 19:00 Last Admin: 07/28/25 08:47 Dose: 875 mg Baclofen (Baclofen 10 Mg Tablet) 10 mg PO TID PRN PRN Reason: muscle pain/ Opiate W/D Last Admin: 07/27/25 11:18 Dose: 10 mg Bupropion HCl (Bupropion Hcl Xl 150 Mg Tab.Er.24h) 150 mg PO DAILY [facility] Last Admin: 07/28/25 08:47 Dose: 150 mg Clonidine HCl (Clonidine Hcl 0.1 Mg Tablet) 0.1 mg PO TID PRN; Protocol PRN Reason: Opiate W/D Last Admin: 07/26/25 16:51 Dose: 0.1 mg Clotrimazole (Clotrimazole 1 % Cream 15 Gm Tube) 1 appl TOPICAL BID [facility]; Protocol Stop: 08/22/25 20:59 Last Admin: 07/27/25 20:38 Dose: 1 appl Gabapentin (Gabapentin 100 Mg Capsule) 100 mg PO TID [facility] Last Admin: 07/28/25 08:47 Dose: 100 mg Hydroxyzine HCl (Hydroxyzine Hcl 50 Mg Tablet) 50 mg PO Q6H PRN PRN Reason: mild anxiety Last Admin: 07/27/25 20:33 Dose: 50 mg Ketoconazole (Ketoconazole 2 % Shampoo 120 Ml Btl) 1 appl TOPICAL Q3D [facility]; Protocol Last Admin: 07/25/25 17:02 Dose: 1 appl Lidocaine HCl (Lidocaine Hcl Viscous 2 % 15 Ml Solution) 5 ml PO DAILY PRN PRN Reason: mild pain Magnesium Hydroxide (Milk Of Magnesia 30 Ml Oral.Susp) 30 ml PO DAILY PRN PRN Reason: Constipation Methadone HCl (Methadone Hcl 20 Mg/2 Ml Oral.Conc) 100 mg PO DAILY@0800 [facility] Nicotine (Nicotine 21 Mg Patch.Td24) 21 mg TRANSDERMA DAILY PRN PRN Reason: nicotine craving Last Admin: 07/25/25 08:46 Dose: 21 mg Nicotine Polacrilex (Nicotine Polacrilex Lozenge 4 Mg Lozenge) 4 mg BUCCAL Q1H PRN PRN Reason: Nicotine Cravings Last Admin: 07/27/25 18:32 Dose: 4 mg Olanzapine (Olanzapine 5 Mg Tablet) 5 mg PO BID PRN PRN Reason: agitation Trazodone HCl (Trazodone Hcl 50 Mg Tablet) 50 mg PO BEDTIME MRX1 PRN PRN Reason: Insomnia Last Admin: 07/27/25 20:33 Dose: 50 mg Allergies Allergies Allergy/AdvReac Type Severity Reaction Status Date / Time No Known Allergies Allergy Verified 02/24/24 14:49 Assessment & Plan Assessment & Plan (1) Depression: Status: Acute Code(s): F32.A - Depression, unspecified (2) PTSD (post-traumatic stress disorder): Status: Acute Code(s): F43.10 - Post-traumatic stress disorder, unspecified (3) Polysubstance use disorder: Status: Acute Code(s): F19.90 - Other psychoactive substance use, unspecified, uncomplicated (4) Tooth infection: Status: Acute Code(s): K04.7 - Periapical abscess without sinus Plan HPI: patient is a 29 y.o single Divehi speaking male with hx of asthma, PTSD, depression, anxiety, and polysubstance use disorders who self presented to ED reporting SI with plan to OD. SI related to his continued drug use, homelessness, and overall displeasure with his life circumstances. Report that he has been using all day everyday, they are not even working. I cannot even kill myself . Formulation/clinical reasoning: Limited community support after released from skilled nursing. No OP providers/therapist. Only started MTD with current dose 40mg, increased in hopeless, helpless, not able to get help in community. hx of PTSD, foster care during childhood, MDD. Given above information, patient would benefit in restrictive environment, medication management. Patient is a appropriate for custodial substance tx program for after care. Hospital course: 07/24/25: On COWs protocol for opiate W/D symptoms Baclofen 10mg TID PRN and clonidine 0.1 TID PRN as comfort meds for W/D symptoms Restart on Wellbutrin XL 150mg daily for depression On ABT for tooth infection x7 days. MTD 40mg daily. Consult sent Addiction team regarding MTD/ SA use. Plan Patient on 15 minute checks for safety. Admitted to M3. CV. Work with treatment team to do collateral for CSS/CCS if possible for aftercare. Refer to patient to senior regulatory affairs specialist: yes for MTD management Contact the hospitalist regarding hospitalist consultation on admission: pending. 07/25: Pt started Wellbutrin XL 150 mg this am, denies SE so far. Met w/ addiction medicine ECONOMIC DEVELOPMENT DIRECTOR who titrated his methadone to 65 mg. Met w/ hospitalist, who started him on clotrimazole for tinea cruris. Input appreciated. Continue current tx plan for now 07/26: Methadone titrated to 75 mg by addiction medicine ECONOMIC DEVELOPMENT DIRECTOR. He is alert, denies current w/d sx. Tolerating current med regimen. Will start gabapentin 100 mg tid for neuropathic pain. Reviewed MANAGER SITE. 07/27: Pt endorses ongoing depression and anxiety, states he isn't getting his prn meds frequently enough but has only utilized them once yesterday and none today. Just started bupropion earlier this week. Methadone titrated to 85 mg by addiction medicine ECONOMIC DEVELOPMENT DIRECTOR, titrating back to previous dose of 100 mg. Will titrate gabapentin to 200 mg TID for neuropathic pain. 07/28:Continue current regimen and plans. DC cows Reason for continued inpatient stay Substantial Risk for: med/psych decompensation Time Spent With Patient Time: Total time managing care of this patient today ____ minutes.
[2025-07-28] MEDS: Nicotine Polacrilex Lozenge 4 MG LOZENGE BUCCAL ×2 (12:41→20:15)
[2025-07-28] MEDS: Nicotine 21 MG PATCH.TD24 TRANSDERMA (12:44)
[2025-07-28 20:00] VITALS: BP 128/77; PULSE 109; RESP 16; TEMP 36.3; O2SAT 96
[2025-07-29 08:14] LABS: Alanine Aminotransferase 103 U/L (0-40); Albumin Level 4.2 g/dL (3.5-5.0); Alkaline Phosphatase 87 U/L (39-117); Anion Gap 12 (12-20); Aspartate Amino Transferase 60 U/L (5-37); Blood Urea Nitrogen 13 mg/dL (9-16); Calcium 9.6 mg/dL (8.4-10.2); Carbon Dioxide 31 mmol/L (22-29); Chloride 103 mmol/L (96-108); Cholesterol 200 mg/dL (<200); Creatinine Clr Calc Pharmacy 127.0; Estimated Glomerular Filt Rate > 60; HDL Cholesterol 30 mg/dL (>40); Potassium 4.8 mmol/L (3.3-5.1); Sodium 141 mmol/L (135-145); Total Protein 7.2 g/dL (6.5-8.0); Triglycerides 468 mg/dL (<150)
[2025-07-29 08:29] LABS: Free T4 (Free Thyroxine) 0.96 ng/dL (0.71-1.85); Thyroid Stimulating Hormone 1.73 uIU/mL (0.32-4.0)
[2025-07-29 09:03] VITALS: BP 124/70; PULSE 71; RESP 16; TEMP 36.8; O2SAT 97
[2025-07-29] MEDS: Clotrimazole 1 % Cream 15 GM TUBE 1 APPL TOPICAL ×2 (09:41→20:14)
[2025-07-29] MEDS: buPROPion HCl XL 150 MG TAB.ER.24H PO (09:41)
[2025-07-29] MEDS: methADONE HCl 20 MG/2 ML ORAL.CONC 100 MG PO (09:45)
--- NOTE | 2025-07-29 10:18 | P.PNPSI_ITS ---
Subjective Subjective Date of Service: 07/29/25 Reason For Visit: unspecified depressive disorder Subjective Notes: Conditional Voluntary Interim History: Patient was seen and discussed in rounds today. Records and plans were reviewed. He is doing well and has been stable. He continues to endorse depression. He is requesting to increase his gabapentin. Previously he has been on 800 mg t.i.d.. I increased to 300 mg t.i.d.. Eating and sleeping adequately. No signs of withdrawals. No SI. No other changes were made Review of Systems Review of Systems Yes all other systems are reviewed and are negative Mental Status Exam Mental Status Exam Narrative: In today's visit he is alert, oriented and pleasant. Speech is normal. Moderate eye contact. Affect is appropriate and constricted. No acute signs of psychosis. No SI. No AVH. Cognitively is grossly intact. Moves all limbs. No gait abnormalities. Judgment is intact Diagnostics Vital Signs (24Hr): Vital Signs - 24 hr 07/28/25 20:00 07/29/25 09:03 Temperature 97.4 F 98.2 F Pulse Rate 109 H 71 Respiratory Rate 16 16 Blood Pressure 128/77 124/70 Pulse Oximetry 96 97 Oxygen Delivery Method Room Air Room Air BMI result Body Mass Index 32.4 Labs 07/29/25 07:37 Labs: Laboratory Results - last 48 hr 07/29/25 07:37 Sodium 141 Potassium 4.8 Chloride 103 Carbon Dioxide 31 H Anion Gap 12 BUN 13 Creatinine 0.92 Estim Creat Clear Calc 127.0 Estimated GFR > 60 Random Glucose 113 Estimat Average Glucose 114 Hemoglobin A1c % 5.6 Calcium 9.6 D Total Bilirubin 0.1 AST 60 H ALT 103 H Alkaline Phosphatase 87 Total Protein 7.2 Albumin 4.2 Triglycerides 468 H Cholesterol 200 H LDL Cholesterol, Calc TNP HDL Cholesterol 30 L TSH 1.73 Free T4 0.96 Medications Medications Current Medications Acetaminophen (Acetaminophen 325 Mg Tablet) 650 mg PO Q6H PRN PRN Reason: Headache/Pain, Scale 1-10 Last Admin: 07/28/25 12:39 Dose: 650 mg Al Hydroxide/Mg Hydroxide (Magnesium Hydrox/Alum Hydrox 30 Ml Oral.Susp) 30 ml PO Q6H PRN PRN Reason: Heartburn/Nausea Albuterol Sulfate (Albuterol Sulfate 90 Mcg 8 Gm Inhaler) 2 puff INHALE RQ4H PRN PRN Reason: SOB/Wheezing Amoxicillin/Clavulanate Potassium (Amoxicillin/Potassium Clav 875 Mg Tablet) 875 mg PO BID [facility] Stop: 07/31/25 19:00 Last Admin: 07/29/25 09:41 Dose: 875 mg Baclofen (Baclofen 10 Mg Tablet) 10 mg PO TID PRN PRN Reason: muscle pain/ Opiate W/D Last Admin: 07/28/25 12:41 Dose: 10 mg Bupropion HCl (Bupropion Hcl Xl 150 Mg Tab.Er.24h) 150 mg PO DAILY [facility] Last Admin: 07/29/25 09:41 Dose: 150 mg Clonidine HCl (Clonidine Hcl 0.1 Mg Tablet) 0.1 mg PO TID PRN; Protocol PRN Reason: Opiate W/D Last Admin: 07/26/25 16:51 Dose: 0.1 mg Clotrimazole (Clotrimazole 1 % Cream 15 Gm Tube) 1 appl TOPICAL BID [facility]; Protocol Stop: 08/22/25 20:59 Last Admin: 07/29/25 09:41 Dose: 1 appl Gabapentin (Gabapentin 100 Mg Capsule) 100 mg PO TID [facility] Last Admin: 07/29/25 09:41 Dose: 100 mg Hydroxyzine HCl (Hydroxyzine Hcl 50 Mg Tablet) 50 mg PO Q6H PRN PRN Reason: mild anxiety Last Admin: 07/28/25 20:02 Dose: 50 mg Ketoconazole (Ketoconazole 2 % Shampoo 120 Ml Btl) 1 appl TOPICAL Q3D [facility]; Protocol Last Admin: 07/28/25 12:21 Dose: Not Given Lidocaine HCl (Lidocaine Hcl Viscous 2 % 15 Ml Solution) 5 ml PO DAILY PRN PRN Reason: mild pain Magnesium Hydroxide (Milk Of Magnesia 30 Ml Oral.Susp) 30 ml PO DAILY PRN PRN Reason: Constipation Methadone HCl (Methadone Hcl 20 Mg/2 Ml Oral.Conc) 100 mg PO DAILY@0800 [facility] Last Admin: 07/29/25 09:45 Dose: 100 mg Nicotine (Nicotine 21 Mg Patch.Td24) 21 mg TRANSDERMA DAILY PRN PRN Reason: nicotine craving Last Admin: 07/28/25 12:44 Dose: 21 mg Nicotine Polacrilex (Nicotine Polacrilex Lozenge 4 Mg Lozenge) 4 mg BUCCAL Q1H PRN PRN Reason: Nicotine Cravings Last Admin: 07/28/25 20:15 Dose: 4 mg Olanzapine (Olanzapine 5 Mg Tablet) 5 mg PO BID PRN PRN Reason: agitation Trazodone HCl (Trazodone Hcl 50 Mg Tablet) 50 mg PO BEDTIME MRX1 PRN PRN Reason: Insomnia Last Admin: 07/28/25 20:02 Dose: 50 mg Allergies Allergies Allergy/AdvReac Type Severity Reaction Status Date / Time No Known Allergies Allergy Verified 02/24/24 14:49 Assessment & Plan Assessment & Plan (1) Depression: Status: Acute Code(s): F32.A - Depression, unspecified (2) PTSD (post-traumatic stress disorder): Status: Acute Code(s): F43.10 - Post-traumatic stress disorder, unspecified (3) Polysubstance use disorder: Status: Acute Code(s): F19.90 - Other psychoactive substance use, unspecified, uncomplicated (4) Tooth infection: Status: Acute Code(s): K04.7 - Periapical abscess without sinus Plan HPI: patient is a 29 y.o single Vietnamese speaking male with hx of asthma, PTSD, depression, anxiety, and polysubstance use disorders who self presented to ED reporting SI with plan to OD. SI related to his continued drug use, homelessness, and overall displeasure with his life circumstances. Report that he has been using all day everyday, they are not even working. I cannot even kill myself . Formulation/clinical reasoning: Limited community support after released from [facility]. No OP providers/therapist. Only started MTD with current dose 40mg, increased in hopeless, helpless, not able to get help in community. hx of PTSD, foster care during childhood, MDD. Given above information, patient would benefit in restrictive environment, medication management. Patient is a appropriate for middle or intermediate school principal substance tx program for after care. Hospital course: 07/24/25: On COWs protocol for opiate W/D symptoms Baclofen 10mg TID PRN and clonidine 0.1 TID PRN as comfort meds for W/D symptoms Restart on Wellbutrin XL 150mg daily for depression On ABT for tooth infection x7 days. MTD 40mg daily. Consult sent Addiction team regarding MTD/ SA use. Plan Patient on 15 minute checks for safety. Admitted to [facility]. CV. Work with treatment team to do collateral for CSS/CCS if possible for aftercare. Refer to patient to administrative services specialist: yes for MTD management Contact the hospitalist regarding hospitalist consultation on admission: pending. 07/25: Pt started Wellbutrin XL 150 mg this am, denies SE so far. 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 Met w/ hospitalist, who started him on clotrimazole for tinea cruris. Input appreciated. Continue current tx plan for now 07/26: Methadone titrated to 75 mg by addiction medicine PRODUCTION MANUFACTURING WORKER. He is alert, denies current w/d sx. Tolerating current med regimen. Will start gabapentin 100 mg tid for neuropathic pain. Reviewed GOLF COURSE DESIGNER. 07/27: Pt endorses ongoing depression and anxiety, states he isn't getting his prn meds frequently enough but has only utilized them once yesterday and none today. Just started bupropion earlier this week. Methadone titrated to 85 mg by addiction medicine PRODUCTION MANUFACTURING WORKER, titrating back to previous dose of 100 mg. Will titrate gabapentin to 200 mg TID for neuropathic pain. 07/28:Continue current regimen and plans. DC cows 07/29:Continue current regimen and plans. Increase gabapentin to 300 mg t.i.d. Patient educated on: medication risk/benefits Reason for continued inpatient stay Substantial Risk for: med/psych decompensation Time Spent With Patient Time: Total time managing care of this patient today ____ minutes.
[2025-07-29] MEDS: Nicotine 21 MG PATCH.TD24 TRANSDERMA (14:57)
[2025-07-29] MEDS: Nicotine Polacrilex Lozenge 4 MG LOZENGE BUCCAL (14:57)
[2025-07-29 20:00] VITALS: BP 142/66; PULSE 98; RESP 18; TEMP 36.6; O2SAT 98
[2025-07-30 07:39] VITALS: BP 126/87; PULSE 72; RESP 20; TEMP 36.2; O2SAT 96
[2025-07-30] MEDS: methADONE HCl 20 MG/2 ML ORAL.CONC 100 MG PO (07:50)
[2025-07-30] MEDS: buPROPion HCl XL 150 MG TAB.ER.24H PO (08:49)
--- NOTE | 2025-07-30 13:19 | HO.PSYCHPN ---
Subjective Subjective Date of Service: 07/30/25 Reason For Visit: unspecified depressive disorder Subjective Notes: Conditional Voluntary Interim History: Chart reviewed, case discussed with team In team meeting, discussed potential plan to d/c pt on Wednesday. SW is waiting to hear back on [facility] referral. Pt was declined from 2 other programs due to his insurance. Pt had a verbal altercation w/ another patient (who is disorganized) after the other patient stood directly behind pt in the dayroom and asked Jovanny to move bc he was in the way of the TV. Jovanny reported that he had been standing in the same spot singing and dancing to music on his headphones for an hour and the other pt could have sat at any other location in front of the TV since nobody else was there. A male counselor intervened and pt became more agitated and loud. He did not engage in any physically aggressive behaviors and was redirected to his room by female nursing staff. He cooperated with speaking to the nurses and t/w about the incident and calmed down. He was triggered by the patient's behavior but expressed an understanding that the patient is here to manage his own mental health problems. He felt that the male counselor was trying to insert his masculinity and was condescending. He shared that he had already been stressed with the news of a likely d/c on Wednesday, as he is homeless and is afraid that he'll relapse if he doesn't go to a program from here. He had been utilizing his coping skill of listening to music to manage this stress, and then the incident occurred. He took prn clonidine and hydroxyzine. T/W met w pt in the hallway ~1 hr after the incident and he was again listening to music, singing and dancing. He was agreeable to adjusting his meds to manage his anxiety/reactivity. Pt denies SI/violent ideation Denies [facility] Medication Compliance: Yes Side effects from medications: No Mental Status Exam Mental Status Exam Narrative: Appearance: Grooming is fair. Good eye contact. Wearing headphones, singing and dancing intermittent throughout the day Attitude:Cooperative, more engaging than last wk Speech: Fluent and wnl in regard to volume, tone, prosody Motor activity: Mild agitation on initial encounter. Calm on 2nd encounter. No tics, tremors or dyskinesias. Steady gait Mood: anxious Affect: appropriate, reactive Thought process: generally goal directed Thought content: as noted above Perception: Denies AH/VH and does not appear to respond to internal stimuli Alert/oriented in all spheres Cognition grossly intact Insight: fair Judgment: fair Diagnostics Vital Signs (24Hr): Vital Signs - 24 hr 07/29/25 20:00 07/30/25 07:39 Temperature 97.8 F 97.1 F Pulse Rate 98 72 Respiratory Rate 18 20 Blood Pressure 142/66 H 126/87 Pulse Oximetry 98 96 Oxygen Delivery Method Room Air Room Air BMI result Body Mass Index 32.4 Labs 07/29/25 07:37 Labs: Laboratory Results - last 48 hr 07/29/25 07:37 Sodium 141 Potassium 4.8 Chloride 103 Carbon Dioxide 31 H Anion Gap 12 BUN 13 Creatinine 0.92 Estim Creat Clear Calc 127.0 Estimated GFR > 60 Random Glucose 113 Estimat Average Glucose 114 Hemoglobin A1c % 5.6 Calcium 9.6 D Total Bilirubin 0.1 AST 60 H ALT 103 H Alkaline Phosphatase 87 Total Protein 7.2 Albumin 4.2 Triglycerides 468 H Cholesterol 200 H LDL Cholesterol, Calc TNP HDL Cholesterol 30 L TSH 1.73 Free T4 0.96 Medications Medications Current Medications Acetaminophen (Acetaminophen 325 Mg Tablet) 650 mg PO Q6H PRN PRN Reason: Headache/Pain, Scale 1-10 Last Admin: 07/28/25 12:39 Dose: 650 mg Al Hydroxide/Mg Hydroxide (Magnesium Hydrox/Alum Hydrox 30 Ml Oral.Susp) 30 ml PO Q6H PRN PRN Reason: Heartburn/Nausea Albuterol Sulfate (Albuterol Sulfate 90 Mcg 8 Gm Inhaler) 2 puff INHALE RQ4H PRN PRN Reason: SOB/Wheezing Amoxicillin/Clavulanate Potassium (Amoxicillin/Potassium Clav 875 Mg Tablet) 875 mg PO BID [facility] Stop: 07/31/25 19:00 Last Admin: 07/30/25 08:49 Dose: 875 mg Baclofen (Baclofen 10 Mg Tablet) 10 mg PO TID PRN PRN Reason: muscle pain/ Opiate W/D Last Admin: 07/29/25 23:08 Dose: 10 mg Bupropion HCl (Bupropion Hcl Xl 150 Mg Tab.Er.24h) 150 mg PO DAILY [facility] Last Admin: 07/30/25 08:49 Dose: 150 mg Clonidine HCl (Clonidine Hcl 0.1 Mg Tablet) 0.1 mg PO TID PRN; Protocol PRN Reason: Opiate W/D Last Admin: 07/26/25 16:51 Dose: 0.1 mg Clotrimazole (Clotrimazole 1 % Cream 15 Gm Tube) 1 appl TOPICAL BID [facility]; Protocol Stop: 08/22/25 20:59 Last Admin: 07/30/25 09:48 Dose: Not Given Gabapentin (Gabapentin 300 Mg Capsule) 300 mg PO TID [facility] Last Admin: 07/30/25 08:49 Dose: 300 mg Hydroxyzine HCl (Hydroxyzine Hcl 50 Mg Tablet) 50 mg PO Q6H PRN PRN Reason: mild anxiety Last Admin: 07/29/25 23:08 Dose: 50 mg Ketoconazole (Ketoconazole 2 % Shampoo 120 Ml Btl) 1 appl TOPICAL Q3D [facility]; Protocol Last Admin: 07/28/25 12:21 Dose: Not Given Lidocaine HCl (Lidocaine Hcl Viscous 2 % 15 Ml Solution) 5 ml PO DAILY PRN PRN Reason: mild pain Magnesium Hydroxide (Milk Of Magnesia 30 Ml Oral.Susp) 30 ml PO DAILY PRN PRN Reason: Constipation Methadone HCl (Methadone Hcl 20 Mg/2 Ml Oral.Conc) 100 mg PO DAILY@0800 [facility] Last Admin: 07/30/25 07:50 Dose: 100 mg Nicotine (Nicotine 21 Mg Patch.Td24) 21 mg TRANSDERMA DAILY PRN PRN Reason: nicotine craving Last Admin: 07/29/25 14:57 Dose: 21 mg Nicotine Polacrilex (Nicotine Polacrilex Lozenge 4 Mg Lozenge) 4 mg BUCCAL Q1H PRN PRN Reason: Nicotine Cravings Last Admin: 07/29/25 14:57 Dose: 4 mg Olanzapine (Olanzapine 5 Mg Tablet) 5 mg PO BID PRN PRN Reason: agitation Trazodone HCl (Trazodone Hcl 50 Mg Tablet) 50 mg PO BEDTIME MRX1 PRN PRN Reason: Insomnia Last Admin: 07/28/25 20:02 Dose: 50 mg Allergies Allergies Allergy/AdvReac Type Severity Reaction Status Date / Time No Known Allergies Allergy Verified 02/24/24 14:49 Assessment & Plan Assessment & Plan (1) Depression: Status: Acute Code(s): F32.A - Depression, unspecified (2) PTSD (post-traumatic stress disorder): Status: Acute Code(s): F43.10 - Post-traumatic stress disorder, unspecified (3) Polysubstance use disorder: Status: Acute Code(s): F19.90 - Other psychoactive substance use, unspecified, uncomplicated (4) Tooth infection: Status: Acute Code(s): K04.7 - Periapical abscess without sinus Plan HPI: patient is a 29 y.o single Malay speaking male with hx of asthma, PTSD, depression, anxiety, and polysubstance use disorders who self presented to ED reporting SI with plan to OD. SI related to his continued drug use, homelessness, and overall displeasure with his life circumstances. Report that he has been using all day everyday, they are not even working. I cannot even kill myself . Formulation/clinical reasoning: Limited community support after released from senior care. No OP providers/therapist. Only started MTD with current dose 40mg, increased in hopeless, helpless, not able to get help in community. hx of PTSD, foster care during childhood, MDD. Given above information, patient would benefit in restrictive environment, medication management. Patient is a appropriate for detention substance tx program for after care. Hospital course: 07/24/25: On COWs protocol for opiate W/D symptoms Baclofen 10mg TID PRN and clonidine 0.1 TID PRN as comfort meds for W/D symptoms Restart on Wellbutrin XL 150mg daily for depression On ABT for tooth infection x7 days. MTD 40mg daily. Consult sent Addiction team regarding MTD/ SA use. Plan Patient on 15 minute checks for safety. Admitted to [facility]3. CV. Work with treatment team to do collateral for CSS/CCS if possible for aftercare. Refer to patient to finance specialist: yes for MTD management Contact the hospitalist regarding hospitalist consultation on admission: pending. 07/25: Pt started Wellbutrin XL 150 mg this am, denies SE so far. Met w/ addiction medicine [employer] who titrated his methadone to 65 mg. Met w/ hospitalist, who started him on clotrimazole for tinea cruris. Input appreciated. Continue current tx plan for now 07/26: Methadone titrated to 75 mg by addiction medicine [employer]. He is alert, denies current w/d sx. Tolerating current med regimen. Will start gabapentin 100 mg tid for neuropathic pain. Reviewed PACKING CLERK. 07/27: Pt endorses ongoing depression and anxiety, states he isn't getting his prn meds frequently enough but has only utilized them once yesterday and none today. Just started bupropion earlier this week. Methadone titrated to 85 mg by addiction medicine [employer], titrating back to previous dose of 100 mg. Will titrate gabapentin to 200 mg TID for neuropathic pain. 07/28:Continue current regimen and plans. DC cows 07/29:Continue current regimen and plans. Increase gabapentin to 300 mg t.i.d. 07/30: Pt had an episode of agitation today after a disorganized patient triggered him. Pt was ultimately redirectable and did not require chemical or physical restraints. He responded well to female staff, seems to be triggered by a male counselor, who he felt was trying to insert his masculinity. Pt was agreeable to starting risperidone 0.5 mg for anxiety, impulse control, mood reactivity. Patient educated on: medication risk/benefits and therapeutic strategies Informed Consent: understands Reason for continued inpatient stay Substantial Risk for: med/psych decompensation Time Spent With Patient Time: Total time managing care of this patient today ____ minutes.
[2025-07-30 13:25] VITALS: BP 135/95
[2025-07-30] MEDS: Nicotine 21 MG PATCH.TD24 TRANSDERMA (15:48)
[2025-07-30 20:00] VITALS: BP 118/75; PULSE 85; RESP 16; TEMP 36.8; O2SAT 99
[2025-07-30] MEDS: Nicotine Polacrilex Lozenge 4 MG LOZENGE BUCCAL (21:15)
[2025-07-31] MEDS: methADONE HCl 20 MG/2 ML ORAL.CONC 100 MG PO (07:54)
[2025-07-31 08:02] VITALS: BP 116/75; PULSE 76; RESP 16; TEMP 36.4; O2SAT 97
[2025-07-31] MEDS: buPROPion HCl XL 150 MG TAB.ER.24H PO (08:41)
[2025-07-31] MEDS: Nicotine Polacrilex Lozenge 4 MG LOZENGE BUCCAL ×2 (11:02→20:58)
[2025-07-31] MEDS: Nicotine 21 MG PATCH.TD24 TRANSDERMA (11:14)
[2025-07-31 19:10] VITALS: BP 132/72; PULSE 100; RESP 16; TEMP 36.5; O2SAT 98
--- NOTE | 2025-07-31 20:55 | P.PNPSI_ITS ---
Subjective Subjective Date of Service: 07/31/25 Reason For Visit: unspecified depressive disorder Subjective Notes: Conditional Voluntary Interim History: Chart reviewed. Case discussed w/ team Pt is aware of plan to d/c tomorrow. There are no beds available at [facility]. SW discussed option w/ pt to section 35 himself and discussed this option w/ pt's SW thru [facility] court program per pt request, who felt that was a good plan. 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 Pt plans to take the bus to the court house tomorrow am to section 35 himself. He wants to abstain from substance use but worries that he will relapse if he has to go to the street. Pt is anxious that he will be incarcerated instead of being 35'd. He states that his only legal issues were related to mental health breakdowns. He is grateful that the court takes his mental health hx into account and provides support. He requests to titrate the gabapentin to optimize tx of neuropathic pain and anxiety. He is agreeable w/ plan to also titrate risperidone to 1 mg qhs Pt denies current SI/violent ideation Denies AHVH Denies med SE visible in the milieu, interacting appropriately w/ peers. No behavioral issues Medication Compliance: Yes Side effects from medications: No Mental Status Exam Mental Status Exam Narrative: Appearance: grooming/hygiene wnl. Good eye contact. Attitude:Cooperative Speech: Fluent and wnl in regard to volume, tone, prosody Motor activity: Calm. no tics/tremors/dyskinesias. steady gait Mood: anxious Affect: appropriate, reactive, brightens up appropriately Thought process:logical, goal directed Thought content: denies SI/violent ideation. Perception: Denies AH/VH and does not appear to respond to internal stimuli Alert/oriented in all spheres Cognition grossly intact Insight: intact Judgment: intact Diagnostics Vital Signs (24Hr): Vital Signs - 24 hr 07/31/25 08:02 07/31/25 19:10 Temperature 97.5 F 97.7 F Pulse Rate 76 100 Respiratory Rate 16 16 Blood Pressure 116/75 132/72 Pulse Oximetry 97 98 Oxygen Delivery Method Room Air Room Air BMI result Body Mass Index 32.4 Labs 07/29/25 07:37 Medications Medications Current Medications Acetaminophen (Acetaminophen 325 Mg Tablet) 650 mg PO Q6H PRN PRN Reason: Headache/Pain, Scale 1-10 Last Admin: 07/28/25 12:39 Dose: 650 mg Al Hydroxide/Mg Hydroxide (Magnesium Hydrox/Alum Hydrox 30 Ml Oral.Susp) 30 ml PO Q6H PRN PRN Reason: Heartburn/Nausea Albuterol Sulfate (Albuterol Sulfate 90 Mcg 8 Gm Inhaler) 2 puff INHALE RQ4H PRN PRN Reason: SOB/Wheezing Baclofen (Baclofen 10 Mg Tablet) 10 mg PO TID PRN PRN Reason: muscle pain/ Opiate W/D Last Admin: 07/31/25 11:14 Dose: 10 mg Bupropion HCl (Bupropion Hcl Xl 150 Mg Tab.Er.24h) 150 mg PO DAILY [facility] Last Admin: 07/31/25 08:41 Dose: 150 mg Clonidine HCl (Clonidine Hcl 0.1 Mg Tablet) 0.1 mg PO TID PRN; Protocol PRN Reason: Opiate W/D Last Admin: 07/30/25 13:25 Dose: 0.1 mg Clotrimazole (Clotrimazole 1 % Cream 15 Gm Tube) 1 appl TOPICAL BID [facility]; Protocol Stop: 08/22/25 20:59 Last Admin: 07/31/25 08:42 Dose: Not Given Gabapentin (Gabapentin 400 Mg Capsule) 400 mg PO TID [facility] Hydroxyzine HCl (Hydroxyzine Hcl 50 Mg Tablet) 50 mg PO Q6H PRN PRN Reason: mild anxiety Last Admin: 07/31/25 11:14 Dose: 50 mg Ketoconazole (Ketoconazole 2 % Shampoo 120 Ml Btl) 1 appl TOPICAL Q3D [facility]; Protocol Last Admin: 07/31/25 08:44 Dose: Not Given Lidocaine HCl (Lidocaine Hcl Viscous 2 % 15 Ml Solution) 5 ml PO DAILY PRN PRN Reason: mild pain Magnesium Hydroxide (Milk Of Magnesia 30 Ml Oral.Susp) 30 ml PO DAILY PRN PRN Reason: Constipation Methadone HCl (Methadone Hcl 20 Mg/2 Ml Oral.Conc) 100 mg PO DAILY@0800 [facility] Last Admin: 07/31/25 07:54 Dose: 100 mg Nicotine (Nicotine 21 Mg Patch.Td24) 21 mg TRANSDERMA DAILY PRN PRN Reason: nicotine craving Last Admin: 07/31/25 11:14 Dose: 21 mg Nicotine Polacrilex (Nicotine Polacrilex Lozenge 4 Mg Lozenge) 4 mg BUCCAL Q1H PRN PRN Reason: Nicotine Cravings Last Admin: 07/31/25 11:02 Dose: 4 mg Risperidone (Risperidone 0.5 Mg Tablet) 0.5 mg PO BID PRN PRN Reason: agitation and/or severe anxiety Risperidone (Risperidone 1 Mg Tablet) 1 mg PO BEDTIME NIRALI Trazodone HCl (Trazodone Hcl 50 Mg Tablet) 50 mg PO BEDTIME MRX1 PRN PRN Reason: Insomnia Last Admin: 07/28/25 20:02 Dose: 50 mg Allergies Allergies Allergy/AdvReac Type Severity Reaction Status Date / Time No Known Allergies Allergy Verified 02/24/24 14:49 Assessment & Plan Assessment & Plan (1) Depression: Status: Acute Code(s): F32.A - Depression, unspecified (2) PTSD (post-traumatic stress disorder): Status: Acute Code(s): F43.10 - Post-traumatic stress disorder, unspecified (3) Polysubstance use disorder: Status: Acute Code(s): F19.90 - Other psychoactive substance use, unspecified, uncomplicated (4) Tooth infection: Status: Acute Code(s): K04.7 - Periapical abscess without sinus Plan patient is a 29 y.o single Filipino speaking male with hx of asthma, PTSD, depression, anxiety, and polysubstance use disorders who self presented to ED reporting SI with plan to OD. SI related to his continued drug use, homelessness, and overall displeasure with his life circumstances. Report that he has been using all day everyday, they are not even working. I cannot even kill myself . Hospital course: 07/24/25: On COWs protocol for opiate W/D symptoms Baclofen 10mg TID PRN and clonidine 0.1 TID PRN as comfort meds for W/D symptoms Restart on Wellbutrin XL 150mg daily for depression On ABT for tooth infection x7 days. MTD 40mg daily. Consult sent Addiction team regarding MTD/ SA use. Plan Patient on 15 minute checks for safety. Admitted to M3. CV. Work with treatment team to do collateral for CSS/CCS if possible for aftercare. Refer to patient to leasing specialist: yes for MTD management Contact the hospitalist regarding hospitalist consultation on admission: pending. 07/25: Pt started Wellbutrin XL 150 mg this am, denies SE so far. Met w/ addiction medicine [facility] COLORIST DYER who titrated his methadone to 65 mg. Met w/ hospitalist, who started him on clotrimazole for tinea cruris. Input appreciated. Continue current tx plan for now 07/26: Methadone titrated to 75 mg by addiction medicine DYE COLORIST DYER. He is alert, denies current w/d sx. Tolerating current med regimen. Will start gabapentin 100 mg tid for neuropathic pain. Reviewed [employer]. 07/27: Pt endorses ongoing depression and anxiety, states he isn't getting his prn meds frequently enough but has only utilized them once yesterday and none today. Just started bupropion earlier this week. Methadone titrated to 85 mg by addiction medicine DYE COLORIST DYER, gradually titrating back to previous dose of 100 mg. Will titrate gabapentin to 200 mg TID for neuropathic pain. 07/28:Continue current regimen and plans. DC cows 07/29:Continue current regimen and plans. Increase gabapentin to 300 mg t.i.d. 07/30: Pt had an episode of agitation today after a disorganized patient triggered him. Pt was ultimately redirectable and did not require chemical or physical restraints. He responded well to female staff, seems to be triggered by a male counselor, who he felt was trying to insert his masculinity. Pt was agreeable to starting risperidone 0.5 mg for anxiety, impulse control, mood reactivity. 07/31: Pt agrees w/ plan to titrate gabapentin to 400 mg tid for tx of anxiety and neuropathic pain and titrate risperidone to 1 mg qhs to improve impulse control, mood regulation and anxiety. Will d/c tomorrow am and present to the court to section 35 himself. He denies SI/violent ideation, AHVH. Scripts have been sent to [facility] pharmacy Patient educated on: medication risk/benefits, substance abuse and therapeutic strategies Informed Consent: understands Reason for continued inpatient stay Substantial Risk for: stable for discharge Time Spent With Patient Time: Total time managing care of this patient today ____ minutes.
[2025-07-31] MEDS: Clotrimazole 1 % Cream 15 GM TUBE 1 APPL TOPICAL (20:58)
[2025-08-01] MEDS: methADONE HCl 20 MG/2 ML ORAL.CONC 100 MG PO (07:43)
[2025-08-01] MEDS: buPROPion HCl XL 150 MG TAB.ER.24H PO (07:47)
--- NOTE | 2025-08-01 07:48 | PC.NURSE ---
pt provided am medications early due to an early discharge
[2025-08-01 08:35] VITALS: BP 117/69; PULSE 76; RESP 16; TEMP 36.9; O2SAT 94
[2025-08-01] MEDS: Nicotine Polacrilex Lozenge 4 MG LOZENGE BUCCAL (08:58)
--- NOTE | 2025-08-01 16:37 | P.DS_ITS ---
DS: Providers Provider Date of admission: 07/24/25 17:21 Date of discharge: 08/01/25 Primary care physician: None Physician Consults: 07/24/25 17:52 Consult to Hospitalist Routine Comment: Consulting Provider: [facility] Hospitalists Reason For Exam: Admission physical 07/24/25 18:53 Addiction Medicine Provider Routine Consulting Provider: Addiction Covering Reason for consultation: MTD management Has provider been notified: Yes DS: Diagnosis Discharge Diagnosis (1) Depression: Status: Acute (2) PTSD (post-traumatic stress disorder): Status: Acute (3) Polysubstance use disorder: Status: Acute (4) Tooth infection: Status: Acute DS: Medications Discharge Medications Home Medications: Previous Rx's ?Medication ?Instructions ?Recorded acetaminophen 325 mg tablet 650 mg (2 x 325 mg) PO Q6H PRN 07/31/25 Headache/Pain, Scale 1-10 #0 tabs albuterol sulfate 90 mcg/actuation 2 puff inhalation R Q4H PRN 07/31/25 aerosol inhaler (Ventolin HFA) SOB/Wheezing 30 days #6 .7 grams bupropion HCl 150 mg 24 hr tablet, 150 mg PO DAILY 30 days #30 tabs 07/31/25 extended release methadone 10 mg/mL oral 100 mg (10 mL) PO DAILY@0800 #0 mL 07/31/25 concentrate (Methadose) nicotine (polacrilex) 4 mg buccal 4 mg buccal Q1H PRN Nicotine 07/31/25 lozenge Cravings 30 days #72 ea nicotine 21 mg/24 hr daily 21 mg transdermal DAILY PRN 07/31/25 transdermal patch nicotine craving 28 days #28 ea trazodone 50 mg tablet 50 mg PO BEDTIME MRX1 PRN In somnia 07/31/25 30 days #60 tabs gabapentin 400 mg capsule 400 mg PO TID 30 days #90 ca ps 08/01/25 DS: Summary Time Spent with Patient Time attestation: Total time managing care of this patient today ____ minutes. Discharge Plan Discharge Anticipated Discharge Date/Time: 08/01/25 08:30 Patient Disposition: Home, Self-Care Discharge Diagnosis: Depressive disorder (r/o substance induced depressive d/o vs MDD) Opioid use disorder PTSD Referrals: Therapy & Psychiatry [Other] - 1 Week Referral Note: *You can present to the clinic above, Wednesday through Wednesday during the hours of 8am and 8pm, in order to obtain outpatient mental health providers. [facility] [Provider Group] - 1 Week Referral Note: 07-31-25 [facility] was added to patients chart. Please call [phone] to schedule a follow up appt within 7-10 days of discharge. No release or PCP on file. Discharge Medications: New albuterol sulfate [Ventolin HFA] 90 mcg/actuation Hfa Aerosol Inhaler 2 puff inhalation RQ4H PRN (Reason: SOB/Wheezing) 30 Days Qty: 6.7 0RF nicotine 21 mg/24 hr Patch 24 Hour 21 mg transdermal DAILY PRN (Reason: nicotine craving) 28 Days Qty: 28 0RF nicotine (polacrilex) 4 mg Lozenge 4 mg buccal Q1H PRN (Reason: Nicotine Cravings) 30 Days Qty: 72 0RF acetaminophen 325 mg Tablet 650 mg PO Q6H PRN (Reason: Headache/Pain, Scale 1-10) Qty: 0 0RF bupropion HCl 150 mg Tablet Extended Release 24 Hr 150 mg PO DAILY 30 Days Qty: 30 0RF trazodone 50 mg Tablet 50 mg PO BEDTIME MRX1 PRN (Reason: Insomnia) 30 Days Qty: 60 0RF methadone [Methadose] 10 mg/mL Concentrate 100 mg PO DAILY@0800 Qty: 0 0RF Rx Instructions: Partial Fill upon patient request. gabapentin 400 mg Capsule 400 mg PO TID 30 Days Qty: 90 0RF Discontinued lidocaine HCl [Lidocaine Viscous] 2 % solution 5 ml PO DAILY PRN (Reason: mild pain) amoxicillin-pot clavulanate 875-125 mg tablet 1 tab PO Q12H nabumetone 500 mg tablet 500 mg PO BID bupropion HCl 150 mg tablet extended release 24 hr 150 mg PO QAM methadone [Methadone Intensol] 10 mg/mL Concentrate 40 mg PO DAILY Discharge Orders: Discharge Order (Routine); Ordered 07/31/25 Ordered By: Charisse Infante Diet: Regular diet Activity on Discharge: No Restrictions Stand Alone Forms: Patient Portal Discharge page, Community Support Print Language: Singaporean Care Plan Goals: Maintain safe behaviors Practice coping skills Take medications as prescribed Continue to pursue sobriety Maintain regular follow-ups with your outpatient providers Health Concerns: Mood stability and behaviors Substance use Plan of Treatment: Follow up with your psychiatric provider, PCP and other outpatient providers Take your medication as prescribed Assessment: Risk assessment at the time of discharge: Patient was interviewed on the day of discharge and found to be fully oriented, without any SI or violent ideation. Pt has improved insight and judgment and plans to continue treatment Pt is not at imminent risk of harm to self or others and has a safety plan that includes presenting to the closest ER or calling 911 if feeling unsafe. Pt has been observed closely by unit staff and has not engaged in any behaviors that suggest dangerous to self or others and has demonstrated appropriate bheaviors and impulse control. Discharge Date/Time: 08/01/25 09:45
== END 2025-08-01 09:45 | disposition home or self-care (01) | DRG 754 ==
PROVIDERS: Nurse Practitioner Psychiatric/Mental Health; Admitting Provider Psychiatry & Neurology Psychiatry; Visit Provider Psychiatry & Neurology Psychiatry
DX: F32.9 Major depressive disorder, single episode, unspecified (principal); R45.851 Suicidal ideations; B35.6 Tinea cruris; F17.210 Nicotine dependence, cigarettes, uncomplicated; F11.20 Opioid dependence, uncomplicated; F19.10 Other psychoactive substance abuse, uncomplicated; F43.10 Post-traumatic stress disorder, unspecified; K04.7 Periapical abscess without sinus; Z91.51 Personal history of suicidal behavior; Z71.6 Tobacco abuse counseling; Z79.899 Other long term (current) drug therapy
CPT/HCPCS: 36415; 80053; 80061; 83036; 84439; 84443

== ENCOUNTER → 2025-07-24 17:21 | Outpatient (BNV) | payer OTHER, SELFPAY | PROVIDERS: Admitting Provider Psychiatry & Neurology Psychiatry; Visit Provider Nurse Practitioner Family | DX: B35.6 Tinea cruris (principal) | CPT/HCPCS: 99221 ==

== ENCOUNTER → 2025-07-24 17:21 | Outpatient (BNV) | payer OTHER, SELFPAY | PROVIDERS: Admitting Provider Psychiatry & Neurology Psychiatry; Visit Provider Nurse Practitioner Psychiatric/Mental Health | DX: F32.2 Major depressive disorder, single episode, severe without psychotic features (principal); F43.11 Post-traumatic stress disorder, acute; F19.90 Other psychoactive substance use, unspecified, uncomplicated; K04.7 Periapical abscess without sinus | CPT/HCPCS: 90792; 99231; 99232; 99499 ==